=== PATIENT | female | born 1960 | race African-American/Black ===

== ENCOUNTER 2018-07-05 10:14 | Day surgery (SDC) | payer SELFPAY ==
[2018-07-03 15:56] VITALS: BMI 27.1
[~2018-07-05 10:14] MED LIST: LACTATED RINGERS SOLUTION 1,000 ML IV SCH; ONDANSETRON 4 MG/2 ML VIAL IVPUSH PRN; oxyCODONE HCL 5 MG TABLET PO PRN
[2018-07-05] MEDS ORDERED: HEPARIN NA (PORCINE) 5,000 UNITS/ML 1ML VIAL ONE (10:25)
[2018-07-05] MEDS ORDERED: MIDAZOLAM HCL 2 MG/2 ML SINGLE DOSE VIAL ONE ×2 (10:53→11:41)
[2018-07-05] MEDS ORDERED: ACETAMINOPHEN INJECTION 100 ML IVPB ONE (11:03)
[2018-07-05] MEDS ORDERED: EPINEPHrine/PF 1 MG/1 ML (1:1,000) AMPULE ONE (11:11)
[2018-07-05] MEDS ORDERED: LIDOCAINE HCL 1% PRESERVATIVE FREE - 30ML VIAL ONE ×2 (11:11→11:33)
[2018-07-05] MEDS ORDERED: DEXAMETHASONE SOD PHOSPHATE 4 MG/1 ML VIAL ONE (11:30)
[2018-07-05] MEDS ORDERED: ONDANSETRON 4 MG/2 ML VIAL ONE (11:30)
[2018-07-05] MEDS ORDERED: PROPOFOL 20 ML ONE ×9 (11:32→13:44)
[2018-07-05] MEDS ORDERED: BACITRACIN 15 GM TUBE TOPICAL OINTMENT ONE (11:33)
[2018-07-05] MEDS ORDERED: HYDROmorphone HCL/PF 1 MG/ML AMP ONE (12:29)
[2018-07-05] MEDS ORDERED: oxyCODONE HCL 5 MG TABLET PO PRN ×2 (14:27)
[2018-07-05] MEDS ORDERED: ONDANSETRON 4 MG/2 ML VIAL IVPB PRN (14:27)
[2018-07-05] MEDS ORDERED: LACTATED RINGERS SOLUTION 1,000 ML IV SCH (14:30)
--- NOTE | 2018-07-05 14:32 | OP ---
Operative Note - Note: Operative Date: 07/05/18 Pre-Operative Diagnosis: lipodystrophy Operation: liposuction to trunk Post-Operative Diagnosis: Same as Pre-op Surgeon: Perry Meek Operative Report Dictated: Yes
[2018-07-05 15:17] VITALS: TEMP 97.9
--- NOTE | 2018-07-05 15:58 | OP ---
DATE OF OPERATION: 07/05/2018 TITLE OF PROCEDURE: Liposuction to trunk, abdomen, and flanks. ATTENDING SURGEON: Perry Meek MD CD[facility] TEACHER: No assistants. DESCRIPTION OF PROCEDURE: Patient is seen in the holding area and marked in standing position. A gram of Ancef is given preoperatively. ESTEVAN hose and sequential compression stockings are applied. She is counseled on all risks, benefits and alternatives, as well as limitations to the operation specifically including several back folds that will not be entirely released. She understands and agrees to proceed. Brought to the operating room and placed in a supine position. She is prepped and draped in the standard surgical fashion. After intubation, a timeout is called. Patient, procedure, side and sites are verified. A wetting solution is infiltrated. The wetting solution is a liter of normal saline with 20 mL of 1% lidocaine plain and 1 ampule of epinephrine in each liter; a total of 3 liters is infiltrated. This is done. The first 2 liters are infiltrated and 20 minutes later the second liter is infiltrated, so that the steps can be staged in terms of liposuction and still providing the effect of the epinephrine. After waiting 20 minutes for hemostatic effect of the wetting solution, a SAFE technique is performed with pre and post-tunneling on nonsuction. This is done through 5-mm stab wound incisions in multiple locations. After the tunneling is performed, suction is then performed using a variety of 4-mm cannulas, after which superficial liposuction is performed with 3-mm cannulas. The lipoaspirates are 530 mL from the upper abdomen, 950 mL from the lower abdomen, 240 from the right upper back, 390 mL from the right flank, 170 mL from the left upper back, 340 mL from the left flank with a miscellaneous additional liposuction of 340 mL. The total aspirated is mL. Endpoint is smooth, even contour with the beginning of appearance of blood within the lipoaspirate. At this point, the post-tunneling is performed with a 4-mm basket-tip cannula without suction. Preoperative scar tissue on the central abdomen is able to be released. Pinch test is used to assess for even thickness to the skin globally. The liposuction holes are closed with a series of interrupted 5-0 nylon suture. Dressings are applied with eye patches and Tegaderms and a compressive garment is applied. Patient is awoken from anesthesia, having tolerated procedure well, transferred to recovery without complication. Margaux [id number]
[2018-07-05 16:30] VITALS: BP 142/83; PULSE 56
[2018-07-06] MEDS ORDERED: HYDROCHLOROTHIAZIDE 25 MG TABLET (FP) PO SCH (10:00)
== END 2018-07-05 16:45 | disposition home or self-care (01) ==
LOC: FASU 10:14
PROVIDERS: ATTEND Plastic Surgery
PROC: 0J083ZZ Alteration of Abdomen Subcutaneous Tissue and Fascia, Percutaneous Approach (ICD-10-PCS; principal; 2018-07-05 11:48)
DX: Z41.1 Encounter for cosmetic surgery (principal)
CPT/HCPCS: 94760; J0131; J1644